=== PATIENT | female | born 1990 | race Caucasian/White ===

== ENCOUNTER 2022-04-28 15:33 | Emergency (ER) | payer OTHER | END 2022-04-28 17:45 | disposition home or self-care (01) | LOC: JD.ED 15:33 | DX: O22.23 Superficial thrombophlebitis in pregnancy, third trimester (principal); Z3A.29 29 weeks gestation of pregnancy; Z88.0 Allergy status to penicillin; Z88.1 Allergy status to other antibiotic agents; Z88.2 Allergy status to sulfonamides; Z79.899 Other long term (current) drug therapy | CPT/HCPCS: 99283 ==